=== PATIENT | male | born 1945 | race Caucasian/White ===

== ENCOUNTER → 2023-07-10 12:12 | Outpatient (REF) | payer MEDICARE, OTHER, SELFPAY | LOC: RAD 12:12 | PROVIDERS: ATTENDING PHYSICIAN Physician Assistant | DX: J22 Unspecified acute lower respiratory infection (principal); J84.9 Interstitial pulmonary disease, unspecified; J41.8 Mixed simple and mucopurulent chronic bronchitis | CPT/HCPCS: 71046 ==

== ENCOUNTER → 2024-08-03 14:51 | Outpatient (REF) | payer MEDICARE, OTHER, SELFPAY | LOC: RAD 14:51 | PROVIDERS: ATTENDING PHYSICIAN Family Medicine; FAMILY PHYSICIAN Family Medicine | DX: R06.02 Shortness of breath (principal); R05.8 Other specified cough | CPT/HCPCS: 71046 ==

== ENCOUNTER → 2024-11-29 11:20 | Outpatient (REF) | payer MEDICARE, OTHER, SELFPAY ==
[2024-11-29 12:25] LABS: Hematocrit 37.6 % (39.0-52.0); Hemoglobin 12.5 g/dL (13.0-18.0); Mean Corp Hgb Conc. 33.2 g/dL (33.0-37.0); Mean Corpuscular Volume 105.0 fL (80.0-94.0); Nucleated Red Blood Cells % 0 % (-); Platelet Count 259 10^3/uL (130-400); Red Cell Dist. Width 16.5 % (11.5-14.5)
[2024-11-29 14:41] LABS: ALT (SGPT) 17 U/L (0-50); AST (SGOT) 25 U/L (17-59); Albumin 4.5 g/dl (3.5-5.0); Alkaline Phosphatase 62 U/L (38-126); Blood Urea Nitrogen 22 mg/dl (9-20); Calcium 9.1 mg/dl (8.4-10.2); Carbon Dioxide 26 mmol/L (22-30); Chloride 107 mmol/L (98-107); Glucose 89 mg/dl (70-99); HDL Cholesterol 44 mg/dl; LDL Cholesterol, Calculated 62 mg/dl; Potassium 4.4 mmol/L (3.5-5.1); Sodium 140 mmol/L (135-145); Total Protein 7.7 g/dl (6.3-8.2); Very Low Density Lipoprotein 19 mg/dl (0-30); eGFR > 60.00
[2024-11-29 15:05] LABS: TSH 1.19 uIU/ml (0.47-4.68)
[2024-11-29 15:25] LABS: Vitamin B12 888 pg/ml (239-931)
== END ==
LOC: REG 11:20
PROVIDERS: ATTENDING PHYSICIAN Family Medicine
DX: E78.00 Pure hypercholesterolemia, unspecified (principal); R80.1 Persistent proteinuria, unspecified; M30.1 Polyarteritis with lung involvement [Churg-Strauss]; I10 Essential (primary) hypertension
CPT/HCPCS: 36415; 80053; 80061; 82607; 84439; 84443; 85025

== ENCOUNTER → 2025-01-21 07:44 | Outpatient (REF) | payer MEDICARE, OTHER, SELFPAY ==
[2025-01-21 08:55] LABS: Hematocrit 37.4 % (39.0-52.0); Hemoglobin 12.1 g/dL (13.0-18.0); Mean Corp Hgb Conc. 32.4 g/dL (33.0-37.0); Mean Corpuscular Volume 104.2 fL (80.0-94.0); Nucleated Red Blood Cells % 0 % (-); Platelet Count 283 10^3/uL (130-400); Red Cell Dist. Width 17.2 % (11.5-14.5)
[2025-01-21 09:29] LABS: Urine Character Clear (Clear)
[2025-01-21 09:33] LABS: ALT (SGPT) 19 U/L (0-50); AST (SGOT) 27 U/L (17-59); Albumin 4.2 g/dl (3.5-5.0); Alkaline Phosphatase 75 U/L (38-126); Blood Urea Nitrogen 26 mg/dl (9-20); Calcium 9.5 mg/dl (8.4-10.2); Carbon Dioxide 27 mmol/L (22-30); Chloride 106 mmol/L (98-107); Glucose 96 mg/dl (70-99); Potassium 4.8 mmol/L (3.5-5.1); Sodium 142 mmol/L (135-145); Total Protein 7.6 g/dl (6.3-8.2); eGFR > 60.00
[2025-01-21 09:40] LABS: Urine Red Blood Cell 0-2 /HPF (0-2); Urine Squamous Cell None seen /LPF (Few); Urine White Cell None Seen /HPF (0-5)
[2025-01-21 09:59] LABS: C-Reactive Protein < 5.00 mg/L (0.0-10.00)
== END ==
LOC: REG 07:44
PROVIDERS: ATTENDING PHYSICIAN Internal Medicine Rheumatology; FAMILY PHYSICIAN Family Medicine
DX: M30.1 Polyarteritis with lung involvement [Churg-Strauss] (principal); D72.18 Eosinophilia in diseases classified elsewhere
CPT/HCPCS: 36415; 80053; 81003; 81015; 85025; 85652; 86140

== ENCOUNTER → 2025-02-23 13:34 | Outpatient (REF) | payer MEDICARE, OTHER, SELFPAY | LOC: HWRCS 13:34 | PROVIDERS: ATTENDING PHYSICIAN Internal Medicine Rheumatology; FAMILY PHYSICIAN Family Medicine | DX: M30.1 Polyarteritis with lung involvement [Churg-Strauss] (principal); D72.18 Eosinophilia in diseases classified elsewhere; R06.02 Shortness of breath | CPT/HCPCS: 93306 ==